=== PATIENT | female | born 1955 | race Caucasian/White ===

== ENCOUNTER 2016-12-02 03:53 | Inpatient (IN) ==
[2016-11-25 12:32] LABS: BASO% 0.4 % (0.0-0.8); EOS# 0.25 X1000 (0.0-0.7); EOS% 3.3 % (0.0-10.0); HEMATOCRIT 35.1 % (37.0-47.0); IMM GRAN# 0.02 X1000 (0.0-0.04); IMM GRAN% 0.3 % (0.0-0.5); LYMPH# 1.95 X1000 (1.2-3.4); LYMPH% 25.9 % (20.5-51.1); MANUAL DIFF NEEDED? NO; MCH 28.1 PG (27-31); MCHC 31.3 g/dL (33-37); MCV 89.5 FL (81-99); MONO# 0.56 X1000 (0.11-0.59); MONO% 7.4 % (1.7-9.3); NEUT% 62.7 % (42.2-75.2); PLT 267 X1000 (130-400); RBC 3.92 XMIL (4.2-5.4)
[2016-11-25 12:33] LABS: BILIRUBIN URINE NEGATIVE (NEGATIVE); BLOOD URINE SMALL (NEGATIVE); COLOR YELLOW; GLUCOSE URINE NEGATIVE (NEGATIVE); LEUKOCYTES URINE NEGATIVE (NEGATIVE); NITRITE URINE NEGATIVE (NEGATIVE); PH URINE 5.5; PROTEIN URINE TRACE mg/dL (NEGATIVE); SP GRAVITY URINE 1.024; TURBIDITY URINE HAZY (CLEAR); URINE MICRO REVIEW NEEDED? YES; URINE SOURCE CLEAN CATCH; UROBILINOGEN URINE NORMAL (NORMAL)
[2016-11-25 12:43] LABS: UR EPITHELIAL CELLS <10 /HPF (<10); URINE BACTERIA NEGATIVE /HPF; URINE WBC <10 /HPF (<10)
[2016-11-25 12:44] LABS: INR 1.02; PROTIME 10.7 Seconds (9.2-11.7); PTT 28.3 Seconds (22.0-36.0)
[2016-11-25 13:07] LABS: AGAP 11; BUN 20 mg/dL (8-22); CALCIUM 9.1 mg/dL (8.8-10.2); CHLORIDE 100 mmol/L (98-107); COSMO 278; POTASSIUM 4.6 mmol/L (3.5-5.1); SODIUM 138 mmol/L (136-145); TCO2 27 mmol/L (25-35)
[2016-12-02] MEDS ORDERED: LYRICA ONE (07:20)
[2016-12-02] MEDS ORDERED: KEFZOL 2 GM/D5W 2 GM/50 ML IVPB ONE (07:20)
[2016-12-02] MEDS ORDERED: CELEBREX ONE (07:20)
[2016-12-02] MEDS ORDERED: COLACE ONE (07:20)
[2016-12-02] MEDS ORDERED: LR 1,000 ML ONE (07:20)
[2016-12-02] MEDS ORDERED: REGLAN ONE (07:20)
[2016-12-02] MEDS ORDERED: PEPCID ONE (07:20)
[2016-12-02] MEDS ORDERED: XYLOCAINE-MPF 2% ONE (07:52)
[2016-12-02] MEDS ORDERED: DECADRON ONE (07:52)
[2016-12-02] MEDS ORDERED: ZOFRAN ONE (07:52)
[2016-12-02] MEDS ORDERED: FENTANYL ONE (07:53)
[2016-12-02] MEDS ORDERED: VERSED ONE ×2 (07:53→09:53)
[2016-12-02] MEDS ORDERED: DIPRIVAN 1% 500 MG/50 ML BOTTLE ONE (08:00)
[2016-12-02] MEDS ORDERED: CYKLOKAPRON 1,000 MG/NS 1,000 MG/100 ML IVPB ONE ×2 (08:16→08:17)
[2016-12-02] MEDS ORDERED: SENSORCAINE 0.25%/EPI 1:200,000 ONE (08:16)
[2016-12-02] MEDS ORDERED: VANCOMYCIN ONE (08:16)
[2016-12-02] MEDS ORDERED: TORADOL ONE (08:16)
[2016-12-02] MEDS ORDERED: SODIUM CHLORIDE 0.9% ONE (08:16)
[2016-12-02] MEDS ORDERED: DURAMORPH ONE (08:16)
[2016-12-02] MEDS ORDERED: EXPAREL 1.3% ONE (08:17)
[2016-12-02] MEDS ORDERED: NEOSPORIN G.U. IRRIGANT ONE (08:17)
[2016-12-02] MEDS ORDERED: OFIRMEV 1000 MG/ISOTONIC SOLN 1,000 MG/100 ML BOTTLE ONE (10:02)
[2016-12-02] MEDS ORDERED: ROBINUL ONE (10:02)
[2016-12-02 10:24] LABS: URINE MICRO REVIEW NEEDED? NO; URINE SOURCE CATH
[2016-12-02 10:35] LABS: BILIRUBIN URINE NEGATIVE (NEGATIVE); BLOOD URINE NEGATIVE (NEGATIVE); COLOR STRAW; GLUCOSE URINE NEGATIVE (NEGATIVE); LEUKOCYTES URINE NEGATIVE (NEGATIVE); NITRITE URINE NEGATIVE (NEGATIVE); PROTEIN URINE NEGATIVE (NEGATIVE); SP GRAVITY URINE 1.006; TURBIDITY URINE CLEAR (CLEAR); UROBILINOGEN URINE NORMAL (NORMAL)
[2016-12-02 10:37] LABS: UR EPITHELIAL CELLS <10 /HPF (<10); URINE BACTERIA NEGATIVE /HPF; URINE RBC <10 /HPF (<10); URINE WBC <10 /HPF (<10)
[2016-12-02] MEDS ORDERED: EPHEDRINE ONE (10:42)
[2016-12-02] MEDS ORDERED: DIPRIVAN 1% ONE (11:22)
[2016-12-02] MEDS ORDERED: NS 1,000 ML ONE (12:24)
[2016-12-02] MEDS: DILAUDID ONE ×2 (13:05→13:11)
[2016-12-02] MEDS ORDERED: ZOFRAN IV PRN (13:15)
[2016-12-02] MEDS ORDERED: OXY IR PO PRN (13:15)
[2016-12-02] MEDS ORDERED: MORPHINE IV PRN (13:15)
[2016-12-02] MEDS ORDERED: MILK OF MAGNESIA PO PRN (13:15)
[2016-12-02] MEDS ORDERED: AMBIEN PO PRN (13:15)
[2016-12-02] MEDS: BSS OPHTH SOLN OPH ONE ×2 (13:22→16:58)
[2016-12-02] MEDS: GENTAMICIN 0.3% OPH OINT OPH ONE (13:23)
[2016-12-02] MEDS: NS 1,000 ML IV SCH ×2 (15:09→16:56)
[2016-12-02] MEDS: ULTRAM PO SCH ×3 (15:13→20:38)
[2016-12-02] MEDS: TYLENOL PO SCH ×2 (15:16→20:38)
--- NOTE | 2016-12-02 16:15 | OPERATIVE NOTE ---
PROCEDURE DATE: 12/02/2016 PREOPERATIVE DIAGNOSIS: Left knee degenerative joint disease. POSTOPERATIVE DIAGNOSIS: Left knee degenerative joint disease. PROCEDURE PERFORMED: Left total knee arthroplasty using [employer], size 8 femoral component, size 7 tibial baseplate, 13 mm articular insert, and a 38 mm patellar component. SURGEON: Prashanth Marcus MD 1ST FOAM CASTER: Rosa Maria Francis PA-C, who was present throughout the case and was critical for preparing the bone ends for implantation, assisting with the implantation of orthopedic total knee arthroplasty, as well as assisting with wound closure. 2ND FOAM CASTER: Yoni Devlin RN ANESTHESIA: Spinal. COMPLICATIONS: None. BLOOD LOSS: Minimal. DRAIN: Hemovac x1. DESCRIPTION OF PROCEDURE: The patient was brought to the operating suite and placed in supine position. After successful administration of general anesthesia, a well-padded tourniquet was placed on the left proximal thigh. The left lower extremity was prepped and draped in the usual sterile fashion. The leg was exsanguinated. The tourniquet was insufflated to 350 torr. A longitudinal incision was made beginning at the superior pole of the patella and extended distally to the tibia tuberosity. It was dissected sharply through the skin. Full-thickness skin flaps were elevated medially and laterally. A medial arthrotomy was made with a vastus snip. The medial capsule was elevated off the medial tibial plateau. The prepatellar fat pad, ACL, PCL, medial meniscus, and lateral meniscus were excised. A drill was entered in the center of the distal femur. An intramedullary guide was placed. A distal cutting block was pinned in place. A distal cut was made with an oscillating saw. The femur was sized to size 8. A size 8 cutting block was pinned in place. The anterior cuts, chamfer cuts, and posterior condylar cuts were made with the oscillating saw. Marginal osteophytes were removed with a rongeur. A box cutting block was pinned in place. A box cut was made with a box osteotome and oscillating saw. The posterior condylar osteophytes were removed with a curved osteotome and rongeur. Attention was then directed to the tibia. A drill was entered in the center of the tibia. An intramedullary guide was placed. Alignment was checked with a drop ha, referencing off the anterior cortex of the tibia and the 2nd ray of the foot and taking 4 mm off the low side of the tibia which, in this case, was medially. The tibial cutting block was pinned in place. The articular surface of the tibial plateau was made with an oscillating saw. Flexion and extension gaps were checked and balanced at 13 mm. The tibia was sized to a size 7. A size 7 guide was used for the fin punch. The tibial trial, femoral trial, and 13 mm articular insert were placed, taken through range of motion, and found to have excellent alignment, balancing, range of motion, and patellar tracking. Attention was then directed to the patella and 9 mm off the articular surface of the patella removed with an oscillating saw. The patella was sized to size 38. A size 38 guide was used to drill peg holes. The lateral facet was chamfered 30-45 degrees. A patellar trial was placed, taken through range of motion, and have excellent patella tracking. All trials were then removed. The knee was copiously irrigated and dried, being certain all bone debris was removed. The tibial component, femoral component, and patellar component were cemented in place, excess cement being removed with a Mason. Once the cement had hardened, excess cement was again removed with an osteotome. The knee was again copiously irrigated and dried, being certain all bone and cement debris were removed. The trial articular insert was removed. The knee was copiously infiltrated with Exparel, including the posterior capsule, anterior capsule, medial and lateral collateral ligaments, anterior musculature, and subcutaneous tissue. A drain was placed exiting superolaterally and buried in the lateral gutter. The definitive 13 mm articular insert was locked into place and then the knee was again found to have excellent alignment, balancing, range of motion, and patellar tracking. The knee was again copiously irrigated and dried, and then the medial arthrotomy was closed with 0 V-Loc suture. The skin edge was approximated with 2-0 Vicryl. The skin was closed with Prineo and a sterile dressing was applied. The patient tolerated the procedure well without complication. At the end of the procedure, all counts were correct x2. The patient was transferred to the recovery room in stable condition. cc: Prashanth Marcus MD
[2016-12-02] MEDS: KEFZOL 2 GM/D5W 2 GM/50 ML IVPB IV SCH (17:16)
[2016-12-02] MEDS: COLACE PO SCH (20:37)
[2016-12-02] MEDS: WELCHOL PO SCH (20:37)
[2016-12-02] MEDS: PERIDEX MT SCH (20:37)
[2016-12-02] MEDS: DITROPAN PO SCH (20:38)
[2016-12-02] MEDS: LYRICA PO SCH (20:38)
[2016-12-03] MEDS: GENTAMICIN 0.3% OPH OINT OPH ONE (00:49)
[2016-12-03] MEDS: ULTRAM PO SCH ×3 (01:29→13:57)
[2016-12-03] MEDS: TYLENOL PO SCH ×3 (01:31→13:58)
[2016-12-03] MEDS: KEFZOL 2 GM/D5W 2 GM/50 ML IVPB IV SCH (01:32)
[2016-12-03 05:40] LABS: HEMATOCRIT 31.4 % (37.0-47.0); HEMOGLOBIN 9.8 g/dL (12.0-16.0)
[2016-12-03 05:47] LABS: AGAP 8; BUN 13 mg/dL (8-22); CALCIUM 8.4 mg/dL (8.8-10.2); CHLORIDE 103 mmol/L (98-107); COSMO 279; POTASSIUM 4.7 mmol/L (3.5-5.1); SODIUM 139 mmol/L (136-145); TCO2 28 mmol/L (25-35)
[2016-12-03] MEDS ORDERED: XARELTO PO SCH (06:00)
[2016-12-03] MEDS ORDERED: DECADRON IV ONE (09:00)
[2016-12-03] MEDS ORDERED: ZIAC 5/6.25 MG PO SCH (09:00)
[2016-12-03] MEDS ORDERED: SALAGEN PO SCH (09:00)
[2016-12-03] MEDS ORDERED: MOBIC PO SCH (09:00)
[2016-12-03] MEDS ORDERED: PROZAC PO SCH (09:00)
[2016-12-03] MEDS ORDERED: PEPCID PO SCH (09:00)
[2016-12-03] MEDS: WELCHOL PO SCH (10:02)
[2016-12-03] MEDS: LYRICA PO SCH (10:02)
[2016-12-03] MEDS: COLACE PO SCH (10:03)
[2016-12-03] MEDS: DITROPAN PO SCH (10:03)
[2016-12-03] MEDS: PERIDEX MT SCH (10:04)
[2016-12-03 12:12] VITALS: BP 118/52
--- NOTE | 2016-12-04 01:10 | DISCHARGE SUMMARY ---
ADMISSION DATE: 12/02/2016 DISCHARGE DATE: 12/03/2016 DISCHARGE DIAGNOSIS: Left knee degenerative joint disease, status post left total knee arthroplasty. DISCHARGE MEDICATIONS: See discharge medication list. DISPOSITION: The patient is discharged home with home health. DISCHARGE INSTRUCTIONS: Instructions for total knee arthroplasty protocol, and instructed to return to see Dr. Marcus next . HOSPITAL COURSE: On the day of admission, the patient underwent a left total knee arthroplasty. Her postoperative course was unremarkable. At discharge, she is afebrile, tolerating a regular diet, ambulating well with physical therapy. Yesterday, she walked 25 feet. Her hemoglobin is 9.8, her hematocrit is 31.4. She had 40 mL of drainage from her Hemovac. Her wound is clean, dry, and intact, without sign of infection. Her calf is soft. She will be discharged home with home health in stable condition with instructions to follow up as described above. Dictated by ELLA Kapadia for Prashanth Marcus MD cc: ELLA Kapadia MD
== END 2016-12-03 14:43 | disposition home health service (06) ==
LOC: SURHOLD 03:53 → 4N 09:47
PROVIDERS: ADMIT Orthopaedic Surgery; ATTEND Orthopaedic Surgery